=== PATIENT | male | born 1935 | race Hispanic/Latino ===

== ENCOUNTER 2021-05-10 13:00 | Inpatient (IN) | payer MEDICARE, OTHER ==
[~2021-05-10] VITALS: Ht 162.6 cm; Wt 71.1 kg
[2021-05-10 13:41] LABS: BASOPHILS % (AUTO) 0.6 % (0.0-5.0); EOSINOPHILS % (AUTO) 0.3 % (0.0-8.0); HEMATOCRIT 47.4 % (42-54); LYMPHOCYTES % (AUTO) 19.6 % (21.0-51.0); MEAN CORPUSCULAR HEMOGLOBIN 31.7 pg (27.0-33.0); MEAN CORPUSCULAR HGB CONC 34.4 g/dL (32.0-36.0); NEUTROPHILS % (AUTO) 71.1 % (40.0-77.0); PLATELET COUNT (AUTO) 160 K/uL (130-400); RED BLOOD CELL COUNT(AUTO) 5.15 MIL/uL (4.50-6.20); RED CELL DISTRIBUTION WIDTH 13.5 % (11.0-15.5)
[2021-05-10 13:48] LABS: CREATININE 0.9 mg/dL (0.5-1.5); POTASSIUM 4.1 mmol/L (3.5-5.1)
[2021-05-10 13:52] LABS: ALBUMIN 2.9 g/dL (3.5-5.0); BILIRUBIN,TOTAL 1.5 mg/dL (0.2-1.0); CRP QUANTITATIVE 71.6 mg/L (0.00-9.0); TOTAL PROTEIN, SERUM 6.8 g/dL (6.0-8.3)
[2021-05-10 13:56] LABS: ABG BASE EXCESS 1.5 mmol/L (-2.0-3.0); ABG HCO3 24.4 mmol/L (21.0-28.0); ABG OXYGEN SATURATION 92.3 % (95.0-99.0); ABG PCO2 33 mmHg (35-48)
[2021-05-10 14:00] LABS: B-TYPE NATRIURETIC PEPTIDE 174 pg/mL (0-100)
[2021-05-10] MEDS ORDERED: CEFTRIAXONE 1G VIAL IVP ONE (14:00)
[2021-05-10] MEDS ORDERED: AZITHROMYCIN 250 MG TABLET PO ONE ×2 (14:00→15:10)
[2021-05-10] MEDS ORDERED: ONDANSETRON 4MG INJ IV PRN (14:30)
[2021-05-10] MEDS ORDERED: ACETAMINOPHEN 325 MG TAB PO PRN ×2 (14:30)
[2021-05-10] MEDS ORDERED: NITROGLYCERIN 0.4 MG SL TAB SL PRN (14:30)
[2021-05-10] MEDS ORDERED: CEFTRIAXONE 1G VIAL ONE (15:11)
[2021-05-10] MEDS ORDERED: 0.9%NACL 100ML 100 ML ONE (15:12)
[2021-05-10 16:02] LABS: APPEARANCE,URINE Clear (CLEAR); BILIRUBIN,URINE Moderate (NEGATIVE); COLOR,URINE Dark Yellow (YELLOW); GLUCOSE, URINE (UA) Negative (NEGATIVE); KETONES,URINE 15 mg/dL (NEGATIVE); LEUKOCYTE ESTERASE ,URINE Trace (NEGATIVE); NITRATE,URINE Negative (NEGATIVE); OCCULT BLOOD,URINE Negative (NEGATIVE); PH,URINE 5.5 (5.0-8.0); PROTEIN,URINE Trace mg/dL (NEGATIVE)
[2021-05-10 16:31] LABS: BACTERIA,URINE Few /HPF (None Seen); MUCUS,URINE Moderate LPF (None Seen); SQUAMOUS EPITHELIAL CELL,UR Few /HPF (0-2)
[2021-05-10] MEDS: 0.9%NACL 1000ML 1,000 ML IV SCH (17:47)
[2021-05-10] MEDS: FAMOTIDINE 20MG TAB PO SCH (20:45)
[2021-05-11] MEDS: 0.9%NACL 1000ML 1,000 ML IV SCH ×2 (05:54→13:35)
[2021-05-11] MEDS ORDERED: CEFTRIAXONE 1G VIAL IV SCH (09:00)
[2021-05-11] MEDS: FAMOTIDINE 20MG TAB PO SCH ×2 (09:29→20:49)
[2021-05-11] MEDS: ENOXAPARIN SODIUM 30 MG/0.3 ML SQ SCH (09:30)
[2021-05-11] MEDS: DOXYCYCLINE 100MG+NS 250ML 250 ML IV SCH (09:31)
[2021-05-11] MEDS ORDERED: CEFTRIAXONE 1G VIAL ONE (12:54)
[2021-05-11] MEDS: CEFTRIAXONE 1G VIAL IV SCH (13:34)
[2021-05-11 13:45] VITALS: BP 109/59
[2021-05-11 16:00] VITALS: BP 107/67
[2021-05-11] MEDS ORDERED: GUAIFENESIN-CODEINE 5 ML SYRUP PO PRN (16:00)
[2021-05-11 20:00] VITALS: BP 101/67
[2021-05-12] VITALS: BP 109/72
[2021-05-12 04:00] VITALS: BP 108/75
[2021-05-12] MEDS: ENOXAPARIN SODIUM 30 MG/0.3 ML SQ SCH (07:10)
[2021-05-12] MEDS: DOXYCYCLINE 100MG+NS 250ML 250 ML IV SCH (07:10)
[2021-05-12] MEDS: FAMOTIDINE 20MG TAB PO SCH (07:10)
[2021-05-12 07:44] VITALS: BP 111/73
[2021-05-12] MEDS ORDERED: TAMS-1 PO (09:55)
[2021-05-12] MEDS ORDERED: DULO30CA52 PO (09:55)
[2021-05-12] MEDS ORDERED: MEMA10TA55 PO (09:55)
[2021-05-12] MEDS ORDERED: CLOP75TA32 PO (09:55)
[2021-05-12] MEDS ORDERED: TRAZ-187 PO (09:55)
[2021-05-12] MEDS ORDERED: METF-444 PO (09:55)
[2021-05-12] MEDS ORDERED: ARIP2TAB20 PO (09:55)
[2021-05-12] MEDS ORDERED: FURO40TA5 PO (09:55)
[2021-05-12] MEDS ORDERED: DONE10TA43 PO (09:55)
[2021-05-12] MEDS ORDERED: PRAV40TA3 PO (09:55)
[2021-05-12] MEDS ORDERED: LISI5TAB21 PO (09:55)
[2021-05-12] MEDS ORDERED: METO-408 PO (09:55)
[2021-05-12 10:21] LABS: HEMATOCRIT 46.3 % (42-54); MEAN CORPUSCULAR HEMOGLOBIN 31.1 pg (27.0-33.0); MEAN CORPUSCULAR HGB CONC 32.6 g/dL (32.0-36.0); MEAN CORPUSCULAR VOLUME 95.3 fL (79-99); RED BLOOD CELL COUNT(AUTO) 4.86 MIL/uL (4.50-6.20); RED CELL DISTRIBUTION WIDTH 13.8 % (11.0-15.5); WHITE BLOOD COUNT (AUTO) 11.1 K/uL (4.8-10.8)
[2021-05-12 10:40] LABS: HEMOGLOBIN A1C 7.1 % (4.0-6.0)
[2021-05-12 10:46] LABS: CREATININE 0.8 mg/dL (0.5-1.5); POTASSIUM 3.7 mmol/L (3.5-5.1)
[2021-05-12 11:35] VITALS: BP 96/64
[2021-05-12] MEDS: CEFTRIAXONE 1G VIAL IV SCH (14:42)
[2021-05-12 15:46] VITALS: BP 107/66
[2021-05-12] MEDS ORDERED: DOXY100C5 PO (19:19)
== END 2021-05-12 20:00 | disposition home or self-care (01) | DRG 202 ==
LOC: EDH 13:00 → EDHIP 14:17 → 4DH 05-11 12:46
PROVIDERS: ADMIT Internal Medicine; ATTEND Internal Medicine
DX: J20.9 Acute bronchitis, unspecified (principal); N39.0 Urinary tract infection, site not specified; Z20.822 Contact with and (suspected) exposure to COVID-19; R62.7 Adult failure to thrive; F03.90 Unspecified dementia, unspecified severity, without behavioral disturbance, psychotic disturbance, mood disturbance, and anxiety; I10 Essential (primary) hypertension; I48.0 Paroxysmal atrial fibrillation; R09.02 Hypoxemia; Z68.26 Body mass index [BMI] 26.0-26.9, adult; Z87.01 Personal history of pneumonia (recurrent)
CPT/HCPCS: 36415; 36600; 70450; 71045; 80048; 80053; 81001; 82803; 82948; 83036; 83605; 83880; 85025; 85027; 86140; 87040; 87071; 87077; 87088; 87186; 87205; 87486; 87581; 87633; 87635; 87798; 87804; 93005; C9803; G0378; J0696; J1650; J3490; J7030

== ENCOUNTER 2021-05-14 17:21 | Inpatient (IN) | payer OTHER ==
[~2021-05-14] VITALS: Ht 167.6 cm; Wt 75.1 kg
[~2021-05-14 17:21] MED LIST: ARIP2TAB20 PO; CLOP75TA32 PO; DONE10TA43 PO; DOXY100C5 PO; DULO30CA52 PO; FURO40TA5 PO; LISI5TAB21 PO; MEMA10TA55 PO; METF-444 PO; METO-408 PO; PRAV40TA3 PO; TAMS-1 PO; TRAZ-187 PO
[2021-05-14 18:50] LABS: APPEARANCE,URINE Cloudy (CLEAR); BILIRUBIN,URINE Moderate (NEGATIVE); COLOR,URINE Dark Yellow (YELLOW); GLUCOSE, URINE (UA) Negative (NEGATIVE); KETONES,URINE Trace mg/dL (NEGATIVE); LEUKOCYTE ESTERASE ,URINE Trace (NEGATIVE); NITRATE,URINE Negative (NEGATIVE); OCCULT BLOOD,URINE Negative (NEGATIVE); PROTEIN,URINE Trace mg/dL (NEGATIVE)
[2021-05-14 18:53] LABS: BASOPHILS % (AUTO) 0.8 % (0.0-5.0); EOSINOPHILS % (AUTO) 0.1 % (0.0-8.0); HEMATOCRIT 45.1 % (42-54); LYMPHOCYTES % (AUTO) 20.5 % (21.0-51.0); MEAN CORPUSCULAR HEMOGLOBIN 31.2 pg (27.0-33.0); MEAN CORPUSCULAR HGB CONC 33.7 g/dL (32.0-36.0); MEAN CORPUSCULAR VOLUME 92.6 fL (79-99); MONOCYTES % (AUTO) 7.6 % (3.0-13.0); NEUTROPHILS % (AUTO) 70.5 % (40.0-77.0); PLATELET COUNT (AUTO) 231 K/uL (130-400); RED BLOOD CELL COUNT(AUTO) 4.87 MIL/uL (4.50-6.20); RED CELL DISTRIBUTION WIDTH 13.6 % (11.0-15.5); WHITE BLOOD COUNT (AUTO) 9.2 K/uL (4.8-10.8)
[2021-05-14 19:10] LABS: BACTERIA,URINE Few /HPF (None Seen); MUCUS,URINE Many LPF (None Seen); SQUAMOUS EPITHELIAL CELL,UR Few /HPF (0-2)
[2021-05-14 19:12] LABS: CREATININE 0.9 mg/dL (0.5-1.5); POTASSIUM 3.7 mmol/L (3.5-5.1)
[2021-05-14 19:17] LABS: ALBUMIN 2.6 g/dL (3.5-5.0); BILIRUBIN,TOTAL 0.7 mg/dL (0.2-1.0); TOTAL PROTEIN, SERUM 6.5 g/dL (6.0-8.3)
[2021-05-14] MEDS ORDERED: LEVOFLOXACIN 500 MG/D5W 100 ML 100 ML IV SCH (19:30)
[2021-05-14] MEDS ORDERED: ACETAMINOPHEN 325 MG TAB PO PRN ×2 (22:00)
[2021-05-14] MEDS ORDERED: ONDANSETRON 4MG INJ IV PRN (22:00)
[2021-05-14] MEDS ORDERED: GUAIFENESIN-DM 200/20 MG 10 ML PO PRN (22:00)
[2021-05-14] MEDS ORDERED: DOXYCYCLINE 100MG+NS 250ML 250 ML IV SCH (22:00)
[2021-05-14] MEDS ORDERED: CEFTRIAXONE 1G VIAL IV SCH (22:00)
[2021-05-14] MEDS ORDERED: LACTATED RINGERS 1000ML 1,000 ML IV SCH (22:00)
[2021-05-14] MEDS ORDERED: HYDRALAZINE 20MG/ML VIAL IV PRN (22:00)
[2021-05-14] MEDS ORDERED: NITROGLYCERIN 0.4 MG SL TAB SL PRN (22:00)
[2021-05-14] MEDS ORDERED: IPRATROPIUM/ALBUTEROL SULFATE 3 ML SOLUTION IH ONE (22:01)
[2021-05-14 22:33] LABS: ABG BASE EXCESS 0.2 mmol/L (-2.0-3.0); ABG HCO3 22.8 mmol/L (21.0-28.0); ABG OXYGEN SATURATION 87.2 % (95.0-99.0); ABG PCO2 31 mmHg (35-48)
[2021-05-14] MEDS: IPRATROPIUM/ALBUTEROL SULFATE 3 ML SOLUTION IH SCH (23:20)
[2021-05-15 05:20] VITALS: BP 112/76
[2021-05-15] MEDS: IPRATROPIUM/ALBUTEROL SULFATE 3 ML SOLUTION IH SCH ×4 (07:00→23:13)
[2021-05-15 08:00] VITALS: BP 111/74
[2021-05-15] MEDS ORDERED: VANCOMYCIN PROTOCOL PER PHARMACY IV PRN (08:00)
[2021-05-15] MEDS ORDERED: 0.9% NACL 250ML 250 ML ONE ×2 (08:58→20:51)
[2021-05-15] MEDS ORDERED: MEMANTINE HCL 5 MG TABLET PO SCH (09:00)
[2021-05-15] MEDS ORDERED: VANCOMYCIN 1G/250ML KIT 250 ML IV SCH (09:00)
[2021-05-15] MEDS: CEFEPIME HCL 2 GM VIAL IVP SCH ×2 (09:04→16:31)
[2021-05-15] MEDS: CLOPIDOGREL 75MG TAB PO SCH (09:04)
[2021-05-15] MEDS: PANTOPRAZOLE 40 MG TAB DR PO SCH (09:04)
[2021-05-15] MEDS: METOPROLOL SUCCINATE 50 MG TAB.SR.24H PO SCH (09:04)
[2021-05-15] MEDS: ENOXAPARIN SODIUM 40 MG/0.4 ML SYRINGE SQ SCH (09:06)
[2021-05-15 11:32] VITALS: BP 107/72
[2021-05-15 16:00] VITALS: BP 116/69
[2021-05-15 20:38] VITALS: BP 112/73
[2021-05-15] MEDS ORDERED: 0.9%NACL 100ML 100 ML IV SCH (21:00)
[2021-05-15] MEDS: VANCOMYCIN 500MG+NS 100ML IVPB IV SCH (21:05)
[2021-05-15] MEDS: TAMSULOSIN HCL 0.4 MG CAP.ER.24H PO SCH (21:06)
[2021-05-15] MEDS: SIMVASTATIN 20 MG TABLET PO SCH (21:06)
[2021-05-15] MEDS: DONEPEZIL HCL 5 MG TAB PO SCH (21:06)
[2021-05-15] MEDS: DULOXETINE HCL 30 MG CAP PO SCH (21:13)
[2021-05-15] MEDS: ARIPIPRAZOLE 5 MG TABLET PO SCH (21:14)
[2021-05-15] MEDS: MEMANTINE HCL 5 MG TABLET PO SCH (21:15)
[2021-05-16] VITALS (7 sets, daily range): BP systolic 105–121; BP diastolic 69–80
[2021-05-16] MEDS: CEFEPIME HCL 2 GM VIAL IVP SCH ×2 (00:14→16:36)
[2021-05-16 05:38] LABS: BASOPHILS % (AUTO) 0.7 % (0.0-5.0); EOSINOPHILS % (AUTO) 0.4 % (0.0-8.0); HEMATOCRIT 39.6 % (42-54); MEAN CORPUSCULAR HEMOGLOBIN 30.8 pg (27.0-33.0); MEAN CORPUSCULAR HGB CONC 33.6 g/dL (32.0-36.0); MEAN CORPUSCULAR VOLUME 91.7 fL (79-99); NEUTROPHILS % (AUTO) 72.3 % (40.0-77.0); PLATELET COUNT (AUTO) 216 K/uL (130-400); RED BLOOD CELL COUNT(AUTO) 4.32 MIL/uL (4.50-6.20); RED CELL DISTRIBUTION WIDTH 13.7 % (11.0-15.5); WHITE BLOOD COUNT (AUTO) 8.3 K/uL (4.8-10.8)
[2021-05-16 06:00] LABS: CREATININE 0.7 mg/dL (0.5-1.5); POTASSIUM 3.7 mmol/L (3.5-5.1)
[2021-05-16] MEDS: IPRATROPIUM/ALBUTEROL SULFATE 3 ML SOLUTION IH SCH ×4 (06:40→23:20)
[2021-05-16] MEDS: VANCOMYCIN 500MG+NS 100ML IVPB IV SCH (09:46)
[2021-05-16] MEDS: METOPROLOL SUCCINATE 50 MG TAB.SR.24H PO SCH (09:48)
[2021-05-16] MEDS: PANTOPRAZOLE 40 MG TAB DR PO SCH (09:48)
[2021-05-16] MEDS: MEMANTINE HCL 5 MG TABLET PO SCH ×2 (09:48→20:31)
[2021-05-16] MEDS: CLOPIDOGREL 75MG TAB PO SCH (09:49)
[2021-05-16] MEDS: ENOXAPARIN SODIUM 40 MG/0.4 ML SYRINGE SQ SCH (09:50)
[2021-05-16] MEDS ORDERED: VANCOMYCIN 750MG VIAL IVPB SCH (18:00)
[2021-05-16] MEDS ORDERED: 0.9% NACL 250ML 250 ML IV SCH (18:00)
[2021-05-16] MEDS: DONEPEZIL HCL 5 MG TAB PO SCH (20:30)
[2021-05-16] MEDS: ARIPIPRAZOLE 5 MG TABLET PO SCH (20:30)
[2021-05-16] MEDS: DULOXETINE HCL 30 MG CAP PO SCH (20:30)
[2021-05-16] MEDS: TAMSULOSIN HCL 0.4 MG CAP.ER.24H PO SCH (20:31)
[2021-05-16] MEDS: SIMVASTATIN 20 MG TABLET PO SCH (20:31)
[2021-05-16] MEDS ORDERED: VANCOMYCIN 1G/250ML KIT 250 ML IV ONE (20:44)
[2021-05-16] MEDS ORDERED: 0.9% NACL 250ML 250 ML IV ONE (21:00)
[2021-05-16] MEDS ORDERED: VANCOMYCIN KIT 1 GM/250 ML IV.KIT IV ONE (21:00)
[2021-05-17] MEDS: CEFEPIME HCL 2 GM VIAL IVP SCH ×4 (00:31→23:57)
[2021-05-17 04:00] VITALS: BP 110/73
[2021-05-17 05:51] LABS: BASOPHILS % (AUTO) 0.7 % (0.0-5.0); EOSINOPHILS % (AUTO) 1.5 % (0.0-8.0); HEMATOCRIT 42.7 % (42-54); LYMPHOCYTES % (AUTO) 15.4 % (21.0-51.0); MEAN CORPUSCULAR HEMOGLOBIN 30.9 pg (27.0-33.0); MEAN CORPUSCULAR VOLUME 93.4 fL (79-99); MONOCYTES % (AUTO) 8.4 % (3.0-13.0); NEUTROPHILS % (AUTO) 73.4 % (40.0-77.0); PLATELET COUNT (AUTO) 228 K/uL (130-400); RED BLOOD CELL COUNT(AUTO) 4.57 MIL/uL (4.50-6.20); RED CELL DISTRIBUTION WIDTH 13.7 % (11.0-15.5); WHITE BLOOD COUNT (AUTO) 8.8 K/uL (4.8-10.8)
[2021-05-17] MEDS: 0.9% NACL 250ML 250 ML IV SCH ×2 (06:04→17:51)
[2021-05-17] MEDS: VANCOMYCIN 750MG VIAL IVPB SCH ×2 (06:04→17:50)
[2021-05-17 06:22] LABS: CREATININE 0.7 mg/dL (0.5-1.5); POTASSIUM 3.5 mmol/L (3.5-5.1)
[2021-05-17] MEDS: IPRATROPIUM/ALBUTEROL SULFATE 3 ML SOLUTION IH SCH ×4 (07:18→23:23)
[2021-05-17] MEDS: METOPROLOL SUCCINATE 50 MG TAB.SR.24H PO SCH (07:48)
[2021-05-17] MEDS: PANTOPRAZOLE 40 MG TAB DR PO SCH (07:49)
[2021-05-17] MEDS: MEMANTINE HCL 5 MG TABLET PO SCH ×2 (07:49→21:01)
[2021-05-17] MEDS: CLOPIDOGREL 75MG TAB PO SCH (07:50)
[2021-05-17] MEDS: ENOXAPARIN SODIUM 40 MG/0.4 ML SYRINGE SQ SCH (07:50)
[2021-05-17 08:00] VITALS: BP 138/87
[2021-05-17 12:00] VITALS: BP 116/74
[2021-05-17 16:00] VITALS: BP 104/67
[2021-05-17 20:00] VITALS: BP 134/83
[2021-05-17] MEDS: TAMSULOSIN HCL 0.4 MG CAP.ER.24H PO SCH (21:00)
[2021-05-17] MEDS: DULOXETINE HCL 30 MG CAP PO SCH (21:00)
[2021-05-17] MEDS: SIMVASTATIN 20 MG TABLET PO SCH (21:01)
[2021-05-17] MEDS: DONEPEZIL HCL 5 MG TAB PO SCH (21:01)
[2021-05-17] MEDS: ARIPIPRAZOLE 5 MG TABLET PO SCH (21:01)
[2021-05-18] VITALS: BP 117/78
[2021-05-18 04:00] VITALS: BP 109/74
[2021-05-18 05:24] LABS: BASOPHILS % (AUTO) 0.6 % (0.0-5.0); EOSINOPHILS % (AUTO) 0.8 % (0.0-8.0); HEMATOCRIT 41.9 % (42-54); LYMPHOCYTES % (AUTO) 15.9 % (21.0-51.0); MEAN CORPUSCULAR HEMOGLOBIN 31.2 pg (27.0-33.0); MEAN CORPUSCULAR HGB CONC 33.9 g/dL (32.0-36.0); MEAN CORPUSCULAR VOLUME 92.1 fL (79-99); MONOCYTES % (AUTO) 6.7 % (3.0-13.0); NEUTROPHILS % (AUTO) 75.2 % (40.0-77.0); PLATELET COUNT (AUTO) 271 K/uL (130-400); RED BLOOD CELL COUNT(AUTO) 4.55 MIL/uL (4.50-6.20); RED CELL DISTRIBUTION WIDTH 13.6 % (11.0-15.5); WHITE BLOOD COUNT (AUTO) 9.5 K/uL (4.8-10.8)
[2021-05-18 05:36] LABS: CREATININE 0.7 mg/dL (0.5-1.5); POTASSIUM 3.7 mmol/L (3.5-5.1)
[2021-05-18] MEDS: VANCOMYCIN 750MG VIAL IVPB SCH (06:00)
[2021-05-18] MEDS: 0.9% NACL 250ML 250 ML IV SCH ×2 (06:00→18:27)
[2021-05-18] MEDS: IPRATROPIUM/ALBUTEROL SULFATE 3 ML SOLUTION IH SCH ×4 (06:46→23:48)
[2021-05-18 07:00] VITALS: BP 117/79
[2021-05-18] MEDS: METOPROLOL SUCCINATE 50 MG TAB.SR.24H PO SCH (09:00)
[2021-05-18 11:00] VITALS: BP 125/82
[2021-05-18] MEDS: CLOPIDOGREL 75MG TAB PO SCH (11:00)
[2021-05-18] MEDS: CEFEPIME HCL 2 GM VIAL IVP SCH ×3 (11:00→23:06)
[2021-05-18] MEDS: MEMANTINE HCL 5 MG TABLET PO SCH ×2 (11:00→19:54)
[2021-05-18] MEDS: PANTOPRAZOLE 40 MG TAB DR PO SCH (11:01)
[2021-05-18] MEDS: ENOXAPARIN SODIUM 40 MG/0.4 ML SYRINGE SQ SCH (11:01)
[2021-05-18 15:00] VITALS: BP 113/74
[2021-05-18] MEDS ORDERED: VANCOMYCIN 2GM/500ML NS IV SCH ×2 (16:00)
[2021-05-18] MEDS: TAMSULOSIN HCL 0.4 MG CAP.ER.24H PO SCH (19:54)
[2021-05-18] MEDS: SIMVASTATIN 20 MG TABLET PO SCH (19:54)
[2021-05-18] MEDS: DULOXETINE HCL 30 MG CAP PO SCH (19:54)
[2021-05-18] MEDS: DONEPEZIL HCL 5 MG TAB PO SCH (19:54)
[2021-05-18] MEDS: ARIPIPRAZOLE 5 MG TABLET PO SCH (19:54)
[2021-05-18 20:00] VITALS: BP 125/81
[2021-05-19] VITALS: BP 131/70
[2021-05-19 04:00] VITALS: BP 113/65
[2021-05-19 04:41] LABS: BASOPHILS % (AUTO) 0.6 % (0.0-5.0); EOSINOPHILS % (AUTO) 0.7 % (0.0-8.0); HEMATOCRIT 41.6 % (42-54); LYMPHOCYTES % (AUTO) 12.3 % (21.0-51.0); MEAN CORPUSCULAR HEMOGLOBIN 31.1 pg (27.0-33.0); MEAN CORPUSCULAR HGB CONC 33.4 g/dL (32.0-36.0); MEAN CORPUSCULAR VOLUME 93.1 fL (79-99); MONOCYTES % (AUTO) 8.1 % (3.0-13.0); NEUTROPHILS % (AUTO) 77.4 % (40.0-77.0); PLATELET COUNT (AUTO) 277 K/uL (130-400); RED BLOOD CELL COUNT(AUTO) 4.47 MIL/uL (4.50-6.20); RED CELL DISTRIBUTION WIDTH 13.8 % (11.0-15.5); WHITE BLOOD COUNT (AUTO) 8.9 K/uL (4.8-10.8)
[2021-05-19 05:06] LABS: ALBUMIN 2.2 g/dL (3.5-5.0); BILIRUBIN,TOTAL 0.6 mg/dL (0.2-1.0); CREATININE 0.6 mg/dL (0.5-1.5); POTASSIUM 3.3 mmol/L (3.5-5.1); TOTAL PROTEIN, SERUM 5.7 g/dL (6.0-8.3)
[2021-05-19] MEDS ORDERED: VANCOMYCIN 750MG VIAL IVPB SCH (06:00)
[2021-05-19] MEDS: 0.9% NACL 250ML 250 ML IV SCH (06:00)
[2021-05-19] MEDS ORDERED: AMPICILLIN/SULBAC 1.5GM VIAL IV SCH (06:00)
[2021-05-19] MEDS: IPRATROPIUM/ALBUTEROL SULFATE 3 ML SOLUTION IH SCH ×2 (06:29→11:08)
[2021-05-19 07:00] VITALS: BP 116/74
[2021-05-19] MEDS ORDERED: AMP/SULBAC 1.5GM+NS 100ML 100 ML IV SCH (07:30)
[2021-05-19] MEDS ORDERED: APIXABAN 5 MG TABLET PO SCH (09:00)
[2021-05-19] MEDS: MEMANTINE HCL 5 MG TABLET PO SCH (09:00)
[2021-05-19] MEDS: PANTOPRAZOLE 40 MG TAB DR PO SCH (09:01)
[2021-05-19] MEDS: METOPROLOL SUCCINATE 50 MG TAB.SR.24H PO SCH (09:01)
[2021-05-19] MEDS: CLOPIDOGREL 75MG TAB PO SCH (09:01)
[2021-05-19] MEDS: CEFEPIME HCL 2 GM VIAL IVP SCH ×2 (09:01→16:54)
[2021-05-19] MEDS ORDERED: KCL 20 MEQ ERTAB PO SCH (09:49)
[2021-05-19 11:00] VITALS: BP 104/77
[2021-05-19] MEDS: AMP/SULBAC 1.5GM+NS 100ML 100 ML IV SCH ×2 (12:00→13:48)
[2021-05-19 15:00] VITALS: BP 108/74
== END 2021-05-19 17:45 | DRG 177 ==
LOC: EDH 17:21 → OBSVTOIN 21:37 → EDHIP 21:37 → 4CH 05-15 03:32
PROVIDERS: ADMIT Internal Medicine; ATTEND Internal Medicine
DX: J15.6 Pneumonia due to other Gram-negative bacteria (principal); J96.01 Acute respiratory failure with hypoxia; N39.0 Urinary tract infection, site not specified; E11.9 Type 2 diabetes mellitus without complications; F03.90 Unspecified dementia, unspecified severity, without behavioral disturbance, psychotic disturbance, mood disturbance, and anxiety; I10 Essential (primary) hypertension; I48.91 Unspecified atrial fibrillation; N40.0 Benign prostatic hyperplasia without lower urinary tract symptoms; E78.5 Hyperlipidemia, unspecified; B95.2 Enterococcus as the cause of diseases classified elsewhere; B96.89 Other specified bacterial agents as the cause of diseases classified elsewhere; Z20.822 Contact with and (suspected) exposure to COVID-19; Z87.01 Personal history of pneumonia (recurrent); Z86.16 Personal history of COVID-19
CPT/HCPCS: 36415; 36600; 71045; 80048; 80053; 80202; 81001; 82803; 82948; 83735; 83880; 84145; 84484; 85025; 86140; 87040; 87071; 87077; 87088; 87116; 87186; 87205; 87206; 87635; 87804; 94640; 94664; 97039; C9803; G0378; J0295; J0692; J0696; J1650; J1956; J3370; J3490; J7040; J7050; J7120